=== PATIENT | female | born 1945 | race Caucasian/White ===

== ENCOUNTER 2018-01-08 06:09 | Day surgery (SDC) | payer OTHER, MEDICARE ==
[2017-11-22 13:49] VITALS: BMI 20.5
[2018-01-08] MEDS ORDERED: SUCCINYLCHOLINE CHLORIDE 200 MG/10 ML VIAL ONE (06:59)
[2018-01-08] MEDS ORDERED: PROPOFOL 20 ML ONE ×2 (07:00→07:44)
[2018-01-08] MEDS ORDERED: LIDOCAINE HCL/PF 2% SDV 5ML VIAL ONE (07:00)
[2018-01-08] MEDS ORDERED: MIDAZOLAM HCL 2 MG/2 ML SINGLE DOSE VIAL ONE (07:03)
[2018-01-08] MEDS ORDERED: oxyCODONE HCL 5 MG TABLET PO PRN ×2 (07:10)
[2018-01-08] MEDS ORDERED: BUPIVACAINE HCL/PF 0.5% (5MG/ML) 10 ML VIAL ONE (07:30)
[2018-01-08] MEDS ORDERED: LIDOCAINE HCL 2% (20ML MULTI-DOSE VIAL) NR ONE (07:30)
[2018-01-08] MEDS ORDERED: SODIUM CHLORIDE 0.9% P/F 10 ML VIAL IJ ONE (07:33)
[2018-01-08] MEDS ORDERED: ceFAZolin SODIUM 1 GM VIAL ONE (07:33)
[2018-01-08] MEDS ORDERED: BUPROPION HCL 100 MG PO SCH (09:15)
--- NOTE | 2018-01-08 09:42 | OP ---
DATE OF OPERATION: 01/08/2018 SURGEON: Mp Bella DPM HEAVY EQUIPMENT OPERATOR: Dr. Oli DPM PREOPERATIVE DIAGNOSIS: Hallux rigidus, right foot. POSTOPERATIVE DIAGNOSIS: Hallux rigidus, right foot. PROCEDURE PERFORMED: Cheilectomy of the right foot. OPERATION IN DETAIL: The patient was taken to the operating room and placed on the operating table in the supine position. After anesthesia was initiated, local anesthesia was performed with a total of 10 mL of a 50/50 mix of 2% plain Xylocaine and 0.5% Marcaine. Following this, the usual aseptic prepping and draping was performed. After a full 3 minutes of elevation, the pneumatic tourniquet on the ankle was inflated to 250 mmHg. The extremity was lowered to the operating table and draping was completed. Attention was directed to the 1st metatarsophalangeal joint of the right foot, where a 6-cm linear incision was effectively placed over the 1st metatarsophalangeal joint. The incision was deepened down to bone, staying medial of the extensor tendon complex. All vital structures were identified, retracted or coagulated. At this point, large dorsal eminences were noted dorsally and dorsolaterally on the 1st metatarsal head. Utilizing a rongeur and a saw, these were excised, and the area was flushed with copiously amounts of saline solution. The cartilage was examined and noted to be intact. The area was then reexamined. Some small osteophytes were noted dorsally and dorsomedially, and they were excised. The area was flushed again with copious amounts of sterile saline solution. The capsule was then closed with 2-0 Vicryl in a continuous manner. The subcutaneous tissue was closed with 4-0 Vicryl, and the skin was reapproximated and closed with 4-0 nylon. A dry sterile dressing was applied to the operative foot. The capillary refilling time was noted to be intact at bandaging after the tourniquet had been released. MP BELLA DPM [id number]
[2018-01-08] MEDS ORDERED: VENLAFAXINE HCL PO SCH (10:00)
[2018-01-08] MEDS ORDERED: LEVOTHYROXINE PO SCH (10:00)
[2018-01-08 10:10] VITALS: BP 155/89; PULSE 65; TEMP 97.7
[2018-01-08] MEDS ORDERED: ATORVASTATIN CA 10 MG PO SCH (22:00)
--- NOTE | 2018-01-11 17:11 | PATH ---
Surgical Pathology Report Patient Name: OC ZARATE [facility]. Rec. #: [id number] /Age/Gender: 1945 (Age: 72) / F Account: [id number] Location: [facility] AMBULATORY Taken: 01/08/2018 Received: 01/08/2018 Reported: 01/11/2018 Physicians: Prema Ochoa Specimen(s) Received RIGHT FOOT BONE Clinical History Hallux rigidus, right foot Final Diagnosis BONE, FOOT, RIGHT, CHEILECTOMY: BONE WITH DEGENERATIVE CHANGES, FIBROADIPOSE TISSUE, AND DENSE FIBROCONNECTIVE TISSUE. Electronically Signed Josie Morfin M.D. Gross Description Received in formalin labeled "right foot bone" are multiple fragments of bone and pink-syed soft tissue measuring 3 x 2.5 x 0.7 cm in aggregate. Entire specimen submitted in one cassette after decalcification. RENETTA/01/09/2018 hector/01/09/2018
== END 2018-01-08 10:05 | disposition home or self-care (01) ==
LOC: FASU 06:09
PROVIDERS: ATTEND Podiatrist
PROC: 0QBN0ZZ Excision of Right Metatarsal, Open Approach (ICD-10-PCS; principal; 2018-01-08 07:51)
DX: M20.21 Hallux rigidus, right foot (principal)
CPT/HCPCS: 73630-TC-RT-FY; 88304-TC; 88311-TC